=== PATIENT | male | born 1995 | race Two or more races ===

== ENCOUNTER 2024-01-16 19:05 | Emergency (ER) | payer SELFPAY ==
[~2024-01-16] VITALS: Ht 175.3 cm; Wt 100.0 kg
[2024-01-16 19:10] VITALS: BP 126/82; PULSE 94; RESP 18; O2SAT 98
== END 2024-01-16 21:21 | disposition left against medical advice (07) ==
LOC: EDBD 19:05 → ER 19:05
DX: S40.811A Abrasion of right upper arm, initial encounter (principal); R51.9 Headache, unspecified; M54.9 Dorsalgia, unspecified; Z53.21 Procedure and treatment not carried out due to patient leaving prior to being seen by health care provider; V89.2XXA Person injured in unspecified motor-vehicle accident, traffic, initial encounter; Y93.89 Activity, other specified; Y92.89 Other specified places as the place of occurrence of the external cause; Y99.8 Other external cause status